=== PATIENT | female | born 2000 | race Caucasian/White ===

== ENCOUNTER → 2024-06-10 10:56 | Outpatient (REF) | payer OTHER, SELFPAY ==
[2024-06-11 19:07] LABS: Hepatitis B Surface Antibody Negative
[2024-06-12 06:43] LABS: Quantiferon Mitogen minus NIL 9.97 IU/mL; Quantiferon NIL 0.03 IU/mL; Quantiferon Plus TB2 minus NIL 0.01 IU/mL (<=0.34); Quantiferon TB Gold Plus Negative (Negative)
== END ==
LOC: OHS 10:56
PROVIDERS: ATTENDING PHYSICIAN Nurse Practitioner Family
DX: Z23 Encounter for immunization (principal)
CPT/HCPCS: 36415; 86480; 86706

== ENCOUNTER → 2025-05-11 14:37 | Outpatient (REF) | payer BC, SELFPAY | LOC: RCS 14:37 | PROVIDERS: ATTENDING PHYSICIAN Internal Medicine Cardiovascular Disease; FAMILY PHYSICIAN Family Medicine | DX: I49.3 Ventricular premature depolarization (principal) | CPT/HCPCS: 93306 ==